=== PATIENT | male | born 1985 | race Caucasian/White ===

== ENCOUNTER 2021-10-14 12:06 | Day surgery (SDC) | payer OTHER, BC ==
[~2021-10-14] VITALS: Ht 172.7 cm; Wt 68.1 kg
[~2021-10-14 12:06] MED LIST: CRUTCH2 XX; HYDACE5 PO; OXYACE7.5T PO; RXOXYACE PO
--- NOTE | 2021-10-14 14:58 | NUR ---
10/14/21 1458 ZECHARIAH LITTLEJOHN 10MLS OF ROPIVICAINE DRAWN UP FROM STERILE FIELD FOR LOCAL INJECTION DURING PROCEDURE.
--- NOTE | 2021-10-14 16:45 | NUR ---
10/14/21 1646 HAM CHANET GIVEN PO PAIN IS 6.5/10. PT ALERT AND TALKING. GIVING FENTANYL IV WELL.
== END 2021-10-14 17:14 | disposition home or self-care (01) ==
LOC: ORSCSDS 12:06
PROVIDERS: Orthopaedic Surgery
PROC: 0QSJ04Z Reposition Right Fibula with Internal Fixation Device, Open Approach (ICD-10-PCS; principal; 2021-10-14 13:30)
PROC: 0SSF04Z Reposition Right Ankle Joint with Internal Fixation Device, Open Approach (ICD-10-PCS; principal; 2021-10-14 13:30)
PROC: 0QSG04Z Reposition Right Tibia with Internal Fixation Device, Open Approach (ICD-10-PCS; principal; 2021-10-14 13:30)
DX: S82.851A Displaced trimalleolar fracture of right lower leg, initial encounter for closed fracture (principal); V86.95XA Unspecified occupant of 3- or 4- wheeled all-terrain vehicle (ATV) injured in nontraffic accident, initial encounter; F17.210 Nicotine dependence, cigarettes, uncomplicated
CPT/HCPCS: A9270; C1713; J0690; J1100; J2250; J2370; J2405; J2704; J2795; J3010; J7120

== ENCOUNTER 2022-09-30 19:54 | Emergency (ER) | payer BC ==
[~2022-09-30] VITALS: Ht 172.7 cm; Wt 70.3 kg
[2022-09-30 20:34] VITALS: BP 142/95
== END 2022-10-01 00:13 | disposition home or self-care (01) ==
LOC: ER 19:54
DX: S81.811A Laceration without foreign body, right lower leg, initial encounter (principal); F17.290 Nicotine dependence, other tobacco product, uncomplicated; W26.8XXA Contact with other sharp object(s), not elsewhere classified, initial encounter; Z91.041 Radiographic dye allergy status; Z88.5 Allergy status to narcotic agent; Z88.8 Allergy status to other drugs, medicaments and biological substances
CPT/HCPCS: 12035; 99282-25